=== PATIENT | female | born 1940 | race Caucasian/White ===

== ENCOUNTER 2019-07-28 12:01 | Emergency (ER) | payer MEDICARE, OTHER ==
[2019-07-28 12:16] VITALS: BP 187/88
[2019-07-28] MEDS ORDERED: KEFLEX500 M1 PO (13:04)
== END 2019-07-28 13:30 | disposition home or self-care (01) ==
LOC: ED 12:01
DX: L03.115 Cellulitis of right lower limb (principal)

== ENCOUNTER 2024-01-17 16:33 | Observation (INO) | payer MEDICARE, BC ==
[~2024-01-17] VITALS: Ht 160 cm; Wt 46.8 kg
[2024-01-17] VITALS (18 sets, daily range): BP systolic 115–169; BP diastolic 43–93
[~2024-01-17 16:33] MED LIST: ALENDRONATE SOD70 MG PO; ATORVASTATIN CA20 MG PO; B-122500 MCG PO; BAYER ASPIRIN E81 MG PO; FOLIC ACID1 M1; KEFLEX500 M1 PO; KEFLEX500 MG PO; MIRTAZAPINE15 MG PO; PREVAGEN10 MG PO; PYRIDIUM200 MG PO
[2024-01-17] MEDS ORDERED: cefTRIAXone SODIUM 2 GM in SODIUM CHLORIDE 0.9% 100 ML IV ONE (16:45)
[2024-01-17] MEDS ORDERED: SODIUM CHLORIDE 0.9% 1,000 ML IV ONE (16:45)
[2024-01-17 17:01] LABS: BASO% 0.1 % (0-3); HEMATOCRIT 42.6 % (37.0-47.0); HEMOGLOBIN 13.6 g/dl (12.0-16.0); IMMATURE GRANULOCYTES 0.9 % (0.0-5.0); LYMPH% 5.3 % (15-41); MEAN CELL VOLUME 93.6 fL CALC (80.0-100.0); MEAN CORPUSCULAR HGB 29.9 pG CALC (26.0-32.0); MEAN CORPUSCULAR HGB CONC 31.9 g/dL CAL (32.0-36.0); MONO% 3.7 % (2-13); NEUT# 8.36 thou/uL (2.00-7.15); RED BLOOD COUNT 4.55 mill/uL (4.20-5.60); RED CELL DISTRI WIDTH 12.6 % (11.5-15.5)
[2024-01-17 17:18] LABS: ALKALINE PHOSPHATASE 48 u/l (38-126); ANION GAP 13 (6-22 (CALC)); BUN 16 mg/dL (8-23); BUN/CREATININE RATIO 25 (12-20 (CALC)); CARBON DIOXIDE 26 mmol/l (22-30); CHLORIDE 102 mmol/l (95-108); CREATININE 0.6 mg/dL (0.5-1.0); ESTIMATED GFR 90 ML/MIN (>=90 (CALC)); POTASSIUM 3.7 mmol/l (3.5-5.1); SGOT/AST 34 u/l (9-36); SODIUM 137 mmol/l (137-146); TOTAL PROTEIN 6.5 g/dL (6.3-8.2)
[2024-01-17 17:27] LABS: BILIRUBIN, TOTAL 0.9 mg/dL (0.02-1.3)
[2024-01-17 18:14] LABS: URINE BILIRUBIN - DIPSTICK Negative (NEGATIVE); URINE BLOOD DIPSTICK Negative (NEGATIVE); URINE GLUCOSE - DIPSTICK Negative (NEGATIVE); URINE KETONE 15 mg/dL (NEGATIVE); URINE LEUK ESTERASE Negative (NEGATIVE); URINE NITRITE - DIPSTICK Negative (Negative); URINE PH 6.5 (4.5-8.0); URINE PROTEIN - DIPSTICK Negative (NEG-TRACE); URINE UROBILINOGEN - DIPSTICK 0.2 E.U./dL (0.2)
[2024-01-17 18:15] LABS: URINE COLOR Yellow
[2024-01-17] MEDS ORDERED: FOLIC ACID1 MG PO (18:26)
[2024-01-17] MEDS ORDERED: ACETAMINOPHEN 500 MG TAB PO ONE (19:00)
[2024-01-17] MEDS ORDERED: MAGNESIUM HYDROXIDE 30 ML UDC PO PRN (21:15)
[2024-01-17] MEDS ORDERED: ACETAMINOPHEN 325 MG/TAB PO PRN (21:15)
[2024-01-17] MEDS ORDERED: SODIUM CHLORIDE 0.9% 1,000 ML IV PRN ×2 (21:15)
[2024-01-17] MEDS ORDERED: SEROQUEL25 MG PO (21:30)
[2024-01-18 00:25] VITALS: BP 138/43
[2024-01-18 04:06] VITALS: BP 129/43
[2024-01-18 05:10] LABS: BASO% 0.2 % (0-3); CREATININE 0.5 mg/dL (0.5-1.0); EOS% 0.2 % (0-8); IMMATURE GRANULOCYTES 0.2 % (0.0-5.0); LYMPH% 11.7 % (15-41); MAGNESIUM 1.8 mg/dL (1.6-2.3); MEAN CORPUSCULAR HGB 30.2 pG CALC (26.0-32.0); MEAN CORPUSCULAR HGB CONC 32.1 g/dL CAL (32.0-36.0); MONO% 7.2 % (2-13); NEUT% 80.5 % (42-76); POTASSIUM 3.4 mmol/l (3.5-5.1); RED BLOOD COUNT 3.84 mill/uL (4.20-5.60); RED CELL DISTRI WIDTH 12.8 % (11.5-15.5)
[2024-01-18 05:12] LABS: ALBUMIN 2.8 g/dL (3.2-5.0); BILIRUBIN, TOTAL 0.5 mg/dL (0.02-1.3); TOTAL PROTEIN 4.9 g/dL (6.3-8.2)
[2024-01-18 05:28] LABS: HEMATOCRIT 36.1 % (37.0-47.0); HEMOGLOBIN 11.6 g/dl (12.0-16.0)
[2024-01-18 07:01] VITALS: BP 124/41
[2024-01-18] MEDS ORDERED: POTASSIUM CHLORIDE 20 MEQ/PKT POWDER PO SCH (08:00)
[2024-01-18] MEDS ORDERED: ASPIRIN EC 81 MG/TAB PO SCH (09:00)
[2024-01-18 15:06] VITALS: BP 140/47
[2024-01-18 19:07] VITALS: BP 158/53
[2024-01-18] MEDS ORDERED: ENOXAPARIN SODIUM 40 MG/0.4 ML SYR SC SCH ×2 (21:00)
[2024-01-18] MEDS ORDERED: ATORVASTATIN CALCIUM 20 MG/TAB PO SCH (21:00)
[2024-01-18] MEDS ORDERED: QUEtiapine FUMERATE 25 MG/TAB PO SCH (21:00)
[2024-01-19] VITALS (7 sets, daily range): BP systolic 128–149; BP diastolic 37–78
[2024-01-19 05:05] LABS: BASO% 0.3 % (0-3); EOS% 0.8 % (0-8); HEMATOCRIT 35.7 % (37.0-47.0); HEMOGLOBIN 11.4 g/dl (12.0-16.0); IMMATURE GRANULOCYTES 0.3 % (0.0-5.0); LYMPH% 33.2 % (15-41); MEAN CELL VOLUME 95.2 fL CALC (80.0-100.0); MEAN CORPUSCULAR HGB 30.4 pG CALC (26.0-32.0); MEAN CORPUSCULAR HGB CONC 31.9 g/dL CAL (32.0-36.0); MONO% 13.3 % (2-13); NEUT# 1.92 thou/uL (2.00-7.15); NEUT% 52.1 % (42-76); RED BLOOD COUNT 3.75 mill/uL (4.20-5.60); RED CELL DISTRI WIDTH 12.5 % (11.5-15.5)
[2024-01-19 05:24] LABS: ALBUMIN 2.6 g/dL (3.2-5.0); BILIRUBIN, TOTAL 0.4 mg/dL (0.02-1.3); CREATININE 0.5 mg/dL (0.5-1.0); MAGNESIUM 1.9 mg/dL (1.6-2.3); POTASSIUM 3.3 mmol/l (3.5-5.1); TOTAL PROTEIN 4.6 g/dL (6.3-8.2)
[2024-01-19] MEDS ORDERED: POTASSIUM CHLORIDE 20 MEQ/PKT POWDER PO SCH (08:00)
[2024-01-19] MEDS ORDERED: BOUDREAUX'S BUTT PASTE ZINC OXIDE 57 G PASTE EX PRN (12:30)
[2024-01-19] MEDS ORDERED: YEAST (S. BOULARDII)(S. CEREVI 250 MG CAP PO SCH (12:30)
[2024-01-20 04:32] VITALS: BP 148/45
[2024-01-20 04:38] LABS: HEMATOCRIT 36.8 % (37.0-47.0); HEMOGLOBIN 11.8 g/dl (12.0-16.0); MEAN CELL VOLUME 95.3 fL CALC (80.0-100.0); MEAN CORPUSCULAR HGB 30.6 pG CALC (26.0-32.0); MEAN CORPUSCULAR HGB CONC 32.1 g/dL CAL (32.0-36.0); RED BLOOD COUNT 3.86 mill/uL (4.20-5.60); RED CELL DISTRI WIDTH 12.6 % (11.5-15.5)
[2024-01-20 04:45] LABS: ALBUMIN 2.7 g/dL (3.2-5.0); BILIRUBIN, TOTAL 0.3 mg/dL (0.02-1.3); CREATININE 0.5 mg/dL (0.5-1.0); TOTAL PROTEIN 4.9 g/dL (6.3-8.2)
[2024-01-20 07:19] VITALS: BP 148/45
[2024-01-20] MEDS ORDERED: REMERON7.5 MG PO (09:49)
[2024-01-20 10:37] VITALS: BP 129/46
== END 2024-01-20 12:00 ==
LOC: ED 16:33 → ED-I 18:14 → ED 18:29 → MS2 18:30
PROVIDERS: Family Medicine; Nurse Practitioner Family; ADMIT Internal Medicine; ATTEND Internal Medicine
DX: A08.11 Acute gastroenteropathy due to Norwalk agent (principal); E78.5 Hyperlipidemia, unspecified; F03.90 Unspecified dementia, unspecified severity, without behavioral disturbance, psychotic disturbance, mood disturbance, and anxiety; Z20.822 Contact with and (suspected) exposure to COVID-19
CPT/HCPCS: G0378; J1650

== ENCOUNTER 2024-02-07 02:11 | Emergency (ER) | payer MEDICARE, BC ==
[2024-02-07] VITALS (13 sets, daily range): BP systolic 135–173; BP diastolic 45–90
[~2024-02-07] VITALS: Ht 160 cm; Wt 54.0 kg
[~2024-02-07 02:11] MED LIST changes: +FOLIC ACID1 MG PO; +REMERON7.5 MG PO; +SEROQUEL25 MG PO
[2024-02-07] MEDS ORDERED: hydrALAZINE HCL 20 MG/ML VIAL(1 ML) IV ONE ×2 (02:20→04:45)
[2024-02-07] MEDS ORDERED: ASPIRIN 81 MG/TAB PO ONE (02:20)
[2024-02-07 02:31] LABS: BASO% 0.3 % (0-3); EOS% 1.8 % (0-8); HEMATOCRIT 39.1 % (37.0-47.0); HEMOGLOBIN 12.2 g/dl (12.0-16.0); IMMATURE GRANULOCYTES 0.2 % (0.0-5.0); LYMPH% 47.3 % (15-41); MEAN CELL VOLUME 94.4 fL CALC (80.0-100.0); MEAN CORPUSCULAR HGB 29.5 pG CALC (26.0-32.0); MEAN CORPUSCULAR HGB CONC 31.2 g/dL CAL (32.0-36.0); MONO% 7.5 % (2-13); NEUT# 2.65 thou/uL (2.00-7.15); NEUT% 42.9 % (42-76); RED BLOOD COUNT 4.14 mill/uL (4.20-5.60); RED CELL DISTRI WIDTH 12.7 % (11.5-15.5)
[2024-02-07 02:45] LABS: ALKALINE PHOSPHATASE 49 u/l (38-126); ANION GAP 13 (6-22 (CALC)); BUN 12 mg/dL (8-23); BUN/CREATININE RATIO 19 (12-20 (CALC)); CARBON DIOXIDE 26 mmol/l (22-30); CHLORIDE 105 mmol/l (95-108); CPK 48 u/l (30-135); CREATININE 0.7 mg/dL (0.5-1.0); ESTIMATED GFR 86 ML/MIN (>=90 (CALC)); LIPASE 195 u/l (23-300); MAGNESIUM 1.9 mg/dL (1.6-2.3); POTASSIUM 3.6 mmol/l (3.5-5.1); SGOT/AST 39 u/l (9-36); SODIUM 141 mmol/l (137-146)
[2024-02-07 02:46] LABS: ALBUMIN 3.6 g/dL (3.2-5.0); BILIRUBIN, TOTAL 0.5 mg/dL (0.02-1.3); TOTAL PROTEIN 5.9 g/dL (6.3-8.2)
[2024-02-07 03:19] LABS: TSH, 3RD GENERATION 4.38 uIU/mL (0.47 - 4.68)
[2024-02-07 05:11] LABS: URINE BILIRUBIN - DIPSTICK Negative (NEGATIVE); URINE BLOOD DIPSTICK Negative (NEGATIVE); URINE COLOR Yellow; URINE GLUCOSE - DIPSTICK Negative (NEGATIVE); URINE KETONE Negative (NEGATIVE); URINE LEUK ESTERASE Trace (NEGATIVE); URINE NITRITE - DIPSTICK Negative (Negative); URINE PROTEIN - DIPSTICK Negative (NEG-TRACE); URINE SPECIFIC GRAVITY 1.015; URINE UROBILINOGEN - DIPSTICK 0.2 E.U./dL (0.2)
[2024-02-07] MEDS ORDERED: CLONIDINE0.2 MG PO (05:56)
== END 2024-02-07 06:22 | disposition home or self-care (01) ==
LOC: ED 02:11
PROVIDERS: Internal Medicine
DX: I10 Essential (primary) hypertension (principal); F03.90 Unspecified dementia, unspecified severity, without behavioral disturbance, psychotic disturbance, mood disturbance, and anxiety
CPT/HCPCS: J0360

== ENCOUNTER 2024-02-14 14:34 | Observation (INO) | payer MEDICARE, BC ==
[~2024-02-14] VITALS: Ht 160 cm; Wt 43.0 kg
[2024-02-14] VITALS (12 sets, daily range): BP systolic 102–139; BP diastolic 41–69
[~2024-02-14 14:34] MED LIST changes: +CLONIDINE0.2 MG PO
[2024-02-14 14:49] LABS: BASO% 0.2 % (0-3); HEMATOCRIT 37.4 % (37.0-47.0); HEMOGLOBIN 11.9 g/dl (12.0-16.0); IMMATURE GRANULOCYTES 0.2 % (0.0-5.0); LYMPH% 34.6 % (15-41); MEAN CELL VOLUME 94.2 fL CALC (80.0-100.0); MEAN CORPUSCULAR HGB CONC 31.8 g/dL CAL (32.0-36.0); NEUT# 3.53 thou/uL (2.00-7.15); RED BLOOD COUNT 3.97 mill/uL (4.20-5.60)
--- NOTE | 2024-02-14 14:57 | NUR ---
PT ARRIVED VIA [facility] AT [facility]-IN STABLE CONDITION.
[2024-02-14 15:09] LABS: ALKALINE PHOSPHATASE 50 u/l (38-126); ANION GAP 11 (6-22 (CALC)); BILIRUBIN, TOTAL 0.5 mg/dL (0.02-1.3); BUN 11 mg/dL (8-23); BUN/CREATININE RATIO 13 (12-20 (CALC)); CARBON DIOXIDE 29 mmol/l (22-30); CHLORIDE 102 mmol/l (95-108); CREATININE 0.8 mg/dL (0.5-1.0); ESTIMATED GFR 74 ML/MIN (>=90 (CALC)); POTASSIUM 4.1 mmol/l (3.5-5.1); SGOT/AST 41 u/l (9-36); SODIUM 138 mmol/l (137-146); TOTAL PROTEIN 6.4 g/dL (6.3-8.2)
[2024-02-14] MEDS ORDERED: LOSARTAN POTASS50 MG PO (15:25)
[2024-02-14 15:55] LABS: URINE BILIRUBIN - DIPSTICK Negative (NEGATIVE); URINE BLOOD DIPSTICK Negative (NEGATIVE); URINE COLOR Yellow; URINE GLUCOSE - DIPSTICK Negative (NEGATIVE); URINE KETONE Negative (NEGATIVE); URINE LEUK ESTERASE Negative (NEGATIVE); URINE NITRITE - DIPSTICK Negative (Negative); URINE PROTEIN - DIPSTICK Negative (NEG-TRACE); URINE UROBILINOGEN - DIPSTICK 0.2 E.U./dL (0.2)
--- NOTE | 2024-02-14 16:00 | NUR ---
PT ADVISED OF NEED FOR FURTHER EVAL D/T [facility].
--- NOTE | 2024-02-14 17:15 | NUR ---
BED ASSIGNED-REPORT TO BE ENDORSED.
--- NOTE | 2024-02-14 18:15 | NUR ---
PT ARRIVED TO THE UNIT VIA STRETCHER FROM ER, PT A&O X3, PT AMBULATED FROM THE STRETCHER TO THE BEDSIDE SCALE AND TO BED WITH A STRONG STEADY GAIT, PT ORIENTED TO THE ROOM AND THE CALL VIVEROS SYSTEM, SAFETY MEASURES INTRODUCED, CALL VIVEROS WITHIN REACH
--- NOTE | 2024-02-14 19:14 | NUR ---
PT RESTING IN BED NO DISTRESS NOTED FAMILY AT BEDSIDE. PT AWARE OF LOW HEART RATE AND SYMPTOMATIC, WEAKNESS. CALL LIGHT INSTRUCTION GIVEN PT STATED UNDERSTANDING. PLAN OF CARE REVEIW WITH PT AND FAMILY.
--- NOTE | 2024-02-14 19:42 | NUR ---
Pt weight at time of arrival - 46.6 kg
--- NOTE | 2024-02-14 19:43 | NUR ---
Pt voided when they arrived, they had an output of 200 cc
--- NOTE | 2024-02-14 19:44 | NUR ---
Pt vitals @ 1933 Temp - 97.1 BP - 120/41 O2 - 96 P - 42
[2024-02-14] MEDS ORDERED: MAGNESIUM HYDROXIDE 30 ML UDC PO PRN (19:45)
[2024-02-14] MEDS ORDERED: ACETAMINOPHEN 325 MG/TAB PO PRN (19:45)
[2024-02-14] MEDS ORDERED: ATORVASTATIN CALCIUM 20 MG/TAB PO SCH (21:00)
[2024-02-14] MEDS ORDERED: MIRTAZAPINE 15 MG/TAB PO SCH (21:00)
[2024-02-14] MEDS ORDERED: ENOXAPARIN SODIUM 40 MG/0.4 ML SYR SC SCH (21:00)
[2024-02-14] MEDS ORDERED: QUEtiapine FUMERATE 25 MG/TAB PO SCH (21:00)
--- NOTE | 2024-02-14 23:54 | NUR ---
GINNER HELPER CALL TO INFORM NURSE THAT PT'S HEART RATE WHEN DOWN TO 32 BUT DID NOT SUSTAIN. CURRENTLY PT HEART RATE CHANGES BETWEEN 36 TO LOW 40S PROVIDER IS AWARE. PT IS SLEEPING BUT EASILY AROUSABLE. CALL LIGHT WITHIN REACH. PLAN OF CARE ONGOING.
[2024-02-15] VITALS: BP 109/69
[2024-02-15 04:00] VITALS: BP 128/45
[2024-02-15 04:36] VITALS: BP 128/45
[2024-02-15 05:19] LABS: BASO% 0.3 % (0-3); EOS% 1.9 % (0-8); HEMATOCRIT 36.9 % (37.0-47.0); HEMOGLOBIN 11.6 g/dl (12.0-16.0); IMMATURE GRANULOCYTES 0.2 % (0.0-5.0); LYMPH% 37.6 % (15-41); MEAN CELL VOLUME 97.1 fL CALC (80.0-100.0); MEAN CORPUSCULAR HGB 30.5 pG CALC (26.0-32.0); MEAN CORPUSCULAR HGB CONC 31.4 g/dL CAL (32.0-36.0); MONO% 8.9 % (2-13); NEUT# 3.23 thou/uL (2.00-7.15); NEUT% 51.1 % (42-76); RED BLOOD COUNT 3.8 mill/uL (4.20-5.60); RED CELL DISTRI WIDTH 12.9 % (11.5-15.5)
[2024-02-15 05:22] LABS: ALBUMIN 3.3 g/dL (3.2-5.0); BILIRUBIN, TOTAL 0.6 mg/dL (0.02-1.3); CREATININE 0.7 mg/dL (0.5-1.0); MAGNESIUM 2.2 mg/dL (1.6-2.3); POTASSIUM 4.3 mmol/l (3.5-5.1); TOTAL PROTEIN 5.4 g/dL (6.3-8.2)
[2024-02-15 07:35] VITALS: BP 146/43
--- NOTE | 2024-02-15 10:34 | NUR ---
Report provided to Suzi BARRIOS PT pam made NPO for possible pacemaker placement this afternoon. Daughter at bedside.
== END 2024-02-15 10:38 | disposition short-term general hospital (02) ==
LOC: ED 14:34 → ED-I 15:06 → ED 15:06 → ED-I 15:10 → ED 16:50 → MS2 16:51
PROVIDERS: Family Medicine; Nurse Practitioner Family; ADMIT Internal Medicine; ATTEND Internal Medicine
DX: R00.1 Bradycardia, unspecified (principal); I44.0 Atrioventricular block, first degree; I95.2 Hypotension due to drugs; T46.5X5A Adverse effect of other antihypertensive drugs, initial encounter; I10 Essential (primary) hypertension; F03.A0 Unspecified dementia, mild, without behavioral disturbance, psychotic disturbance, mood disturbance, and anxiety; Z20.822 Contact with and (suspected) exposure to COVID-19; Z90.49 Acquired absence of other specified parts of digestive tract
CPT/HCPCS: G0378; J1650